=== PATIENT | male | born 1965 | race Caucasian/White ===

== ENCOUNTER 2017-02-17 12:30 | Emergency (ER) | payer BC, MEDICARE ==
[~2017-02-17] VITALS: Ht 152.4 cm; Wt 63.0 kg
[2017-02-17 13:00] VITALS: BP 138/92
[2017-02-17] MEDS ORDERED: [UNRECOGNIZED DRUG - REMARK] (13:29)
[2017-02-17] MEDS ORDERED: [UNRECOGNIZED DRUG - REMARK] PO (13:29)
[2017-02-17] MEDS ORDERED: OXYC-302 PO (13:29)
[2017-02-17] MEDS ORDERED: IBUPROFEN 200 MG TABLET ONE (13:42)
[2017-02-17] MEDS ORDERED: OXYcodone/APAP 5/325MG TABLET ONE (13:42)
[2017-02-17] MEDS ORDERED: OXYcodone/APAP 5/325MG TABLET PO ONE (14:00)
[2017-02-17] MEDS ORDERED: IBUPROFEN 200 MG TABLET PO ONE (14:00)
== END 2017-02-17 14:40 | disposition home or self-care (01) ==
LOC: ED 14:24
DX: S22.32XA Fracture of one rib, left side, initial encounter for closed fracture (principal); S70.02XA Contusion of left hip, initial encounter; F17.200 Nicotine dependence, unspecified, uncomplicated; W01.0XXA Fall on same level from slipping, tripping and stumbling without subsequent striking against object, initial encounter; Y93.89 Activity, other specified; Y92.009 Unspecified place in unspecified non-institutional (private) residence as the place of occurrence of the external cause; Y99.9 Unspecified external cause status
CPT/HCPCS: 99284